=== PATIENT | male | born 1945 | race Caucasian/White ===

== ENCOUNTER 2025-01-09 13:40 | Outpatient (CLI) | payer MEDICARE, SELFPAY ==
--- OUTSIDE RECORDS SUMMARY | 2025-01-09 14:48 | XMS_ITS | Clinical Summary ---
Author Organization [facility] Address [address] [address] Care Team Providers Care Denier Control Operator Name Role Phone Unavailable Primary Care Provider Unavailabl e Source Comments [facility],non-owned Affiliates and Associated Physician Practices is amultiple site organization consisting of ambulatory clinics and hospital sitesin [place], [place], [place] and [place]. This disclosure is being madepursuant to the Care Everywhere program and may not contain all information available regarding this patient. 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 Gender Identity Not on file Sexual Orientation Not on file Plan of Treatment Health Maintenance Due Date Last Done Comments DTAP/TDAP/TD VACCINES (1 - Tdap) 1964 PNEUMOCOCCAL VACCINE 50+ (1 of 1 - PCV) 07/28/1995 ZOSTER VACCINE (1 of 2) 07/28/1995 Respiratory Syncytial Virus (RSV) Vaccine Pt: or over 60 yrs (1 - 1-dose 75+ series) 2020 COVID-19 VACCINE ( - 2023-2 5 season) 2024 DEPRESSION SCREENING 05/25/2024 INFLUENZA VACCINE (#1) 2025 HEPATITIS B VACCINE Aged Out No longe r eligible based on patient's age to complete this topic HIB VACCINE Aged Out No longer eligi ble based on patient's age to complete this topic HPV VACCINE Aged Out No longer eligi ble based on patient's age to complete this topic MENINGOCOCCAL (Group B) VACC INE SHARED DECISION-MAKING Aged Out No longer eligibl e based on patient's age to complete this topic MENINGOCOCCAL GROUPS A/C/Y/W VACCINE Aged Out No longer eligible b ased on patient's age to complete this topic
--- OUTSIDE RECORDS SUMMARY | 2025-01-09 14:49 | XMS_ITS | Clinical Summary ---
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 5 MG) BY MOUTH DAILY 45 tablet 3 5 Active rosuvastatin (CRESTOR) 20 mg tabletIndicatio ns:Coronary artery disease involving [place] coronary artery of [place] heart without angina pectoris TAKE 1 TABLET(20 MG) BY MOUTH DAILY 90 tablet 5 Active metoprolol tartrate (LOPRESSOR) 25 mg immediate release tabletIndicatio ns:Coronary artery disease involving [place] coronary artery of [place] heart without angina pectoris TAKE 1 TABLET(25 MG) BY MOUTH TWICE DAILY 180 tablet 1 5 Active metoprolol tartrate (LOPRESSOR) 25 mg immediate release tabletIndicatio ns:Coronary artery disease involving [place] coronary artery of [place] heart without angina pectoris TAKE 1 TABLET(25 MG) BY MOUTH TWICE DAILY 180 tablet 1 12/15/19 25 Discontinued Active Problems Problem Noted Date Diagnosed Date Coronary artery disease invo lving sh[place] coronary artery of [place] heart without angina pectoris 09/29/2019 History of coronary artery stent placement 09/28 Surgical follow-up care 04/29/2013 Surgical History Surgery Date Site/Laterality Comments CORONARY ANGIOPLASTY CARDIAC CATHETERIZATION KNEE SURGERY Medical History Medical History Date Comments Aftercare following joint re placement surgery Aftercare following joint re placement - (Added by TW Conv) Coronary artery disease Restless leg syndrome Family History Medical History Relation Name Comments Bone cancer Brother Lung cancer Father COPD Mother Heart attack Sister 1 Stroke Sister 2 Relation Name Status Comments Brother (Age 79) Father (Age 83) Mother (Age 77) Sister 1 (Age 83) Sister 2 (Age 72) Social History Tobacco Use Types Packs/Day Years Used Date Smoking Tobacco: Former Cigarettes 0.3 50 Smokeless Tobacco: Never Tobacco Cessation:Counseling Given: Not Answered Alcohol Use Standard Drinks/Week Comments Yes 1 (1 standard drink = 0.6 oz pur e alcohol) Sex and Gender Information Value Date Recorded Sex Assigned at Not on file 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 Gender Identity Not on file Sexual Orientation Not on file Obstetrics History Last Filed Vital Signs Vital Sign Reading Time Taken Comments Blood Pressure 148/66 04/26/2024 1:25 PM CONSTRUCTION SITE CROSSING GUARD Pulse 59 04/26/2024 1:25 PM CONSTRUCTION SITE CROSSING GUARD Temperature - - Respiratory Rate 16 04/04/2021 1:07 PM CONSTRUCTION SITE CROSSING GUARD Oxygen Saturation 93% 04/26/2024 1:25 PM CONSTRUCTION SITE CROSSING GUARD Inhaled Oxygen Concentration - - Weight 67.8 kg (149 lb 8 oz) 04/26/2024 1:25 PM CONSTRUCTION SITE CROSSING GUARD Height 172.7 cm (5' 8) 04/26/2024 1:25 PM CONSTRUCTION SITE CROSSING GUARD Body Mass Index 22.73 04/26/2024 1:25 PM CONSTRUCTION SITE CROSSING GUARD Plan of Treatment Health Maintenance Due Date Last Done Comments Depression Screening 1945 Hepatitis C Screening 1945 DTaP/Tdap/Td Vaccine (1 - Tdap) 1956 Hepatitis B Screening 07/28/1963 Zoster Vaccine (1 of 2) 07/28/1995 Abdominal Aortic Aneurysm (A AA) Screen 2010 Well Visit 65+ 2010 Fall Risk Assessment 09/28/2020 09/29/2019 Influenza Vaccine (#1) 2025 7, 03/03/2016, 04/26/2015, Additional history exists Pneumococcal vaccine 65+ Completed 019, 03/24/2017, 04/26/2015 Insurance MEDICARE COMMERCIAL GENERIC COMMERCIAL GENERIC MEDICARE Care Teams Radiology Tech Relationship Specialty Start Date End Date Kyrie Maurice MD [address] [facility] [address] [place] [address] PCP - General Internal Medicine 06/07/19
--- OUTSIDE RECORDS SUMMARY | 2025-01-09 14:49 | XMS_ITS | Continuity of Care Document ---
Author Organization [facility] Address [address] [place] [address] [address] [place] [address] Phone Care Team Providers Care Procurement Cost Coordinator Name Role Phone Douglas OD, Devan Unavailable Unavailable Procedures Procedure Date Eye Exam, New Patient Refraction Advance Directives Directive Yes / No Effective Date File Name No Information Encounters Encounter Description Practice Location Reason(s) For Visit Diagnoses Date Provider Providers Copied on Encounter [facility], [address] [place] [address] [address], [place], [place], [id number], [place] tel:[phone] [facility] No Information [address] Douglas OD Devan. [address], [place], [address], [place]. tel:[phone] Family History Family Member Type Diagnosis Age At Onset No Information Payers Payer name Insurance type Covered republican ID Authoriza tieh(s) [facility] Commercial CI [id number] Social History Type Description Quantity Date Captured Comments Sex Male Smoking Status No Information Chief Complaint And Reason For Visit No Information Reason For Referral Reason For Referral No Information History Of Present Illness Encounter Date Complaint History Of Prese nt Illness No Information Functional Status Date Functional Assessmen t No Information Instructions Date Instruction Additional Infor mation No Information Assessments Type Assessment Date No Information Patient Care Teams Name Effective Dates (start - stop) Status Members No Information
== END 2025-01-09 13:41 | disposition home or self-care (01) ==
LOC: ANHAUDASC 13:40
PROVIDERS: PCP Internal Medicine; Visit Provider Otolaryngology
DX: H90.3 Sensorineural hearing loss, bilateral (principal); H93.13 Tinnitus, bilateral; H74.8X2 Other specified disorders of left middle ear and mastoid; H73.892 Other specified disorders of tympanic membrane, left ear; Z86.69 Personal history of other diseases of the nervous system and sense organs; Z98.890 Other specified postprocedural states; Z82.2 Family history of deafness and hearing loss
CPT/HCPCS: 92557; 92567